=== PATIENT | female | born 2005 | race African-American/Black ===

== ENCOUNTER 2025-05-12 19:39 | Emergency (ER) | payer BC ==
[~2025-05-12] VITALS: Ht 154.9 cm; Wt 72.2 kg
[2025-05-12 20:11] VITALS: O2SAT 100
[2025-05-12 20:35] VITALS: BP 125/86; PULSE 89; RESP 12; TEMP 36.8; O2SAT 100
[2025-05-12 22:51] LABS: CLARITY URINE CLEAR (CLEAR); COLOR URINE YELLOW (YELLOW); GLUCOSE URINE NEGATIVE (NEGATIVE); KETONES URINE TRACE (NEGATIVE); LEUKOCYTE ESTERASE URINE 2+ (NEGATIVE); NITRITE URINE NEGATIVE (NEGATIVE); OCCULT BLOOD URINE TRACE (NEGATIVE); PH URINE 6.0 (4.5-8.0); PROTEIN URINE TRACE (NEGATIVE); SPECIFIC GRAVITY URINE 1.029 (1.005-1.030); UROBILINOGEN URINE 1.0 E.U./dL (0.2-1.0)
[2025-05-12 23:07] LABS: BACTERIA URINE 1+; RBC URINE 0-2 /hpf (0-2); SQUAMOUS EPITHELIAL CELL URINE 1+ /lpf (RARE/1+)
[2025-05-13] MEDS ORDERED: NITR-87 MT (01:00)
[2025-05-13] MEDS ORDERED: VALA100044 MT (01:00)
== END 2025-05-13 01:27 | disposition home or self-care (01) ==
LOC: ER 19:39
DX: N76.0 Acute vaginitis (principal); N39.0 Urinary tract infection, site not specified; Z79.624 Long term (current) use of inhibitors of nucleotide synthesis
CPT/HCPCS: 81003; 87210; 99284; Z7610